=== PATIENT | male | born 1985 | race Caucasian/White ===

== ENCOUNTER 2017-05-29 19:44 | Emergency (ER) | payer BC ==
[~2017-05-29] VITALS: Ht 177.8 cm; Wt 99.8 kg
[~2017-05-29 19:44] MED LIST: CELEXA10 MG PO; CLONAZEPAM0.5 M1 PO; LEVAQUIN750 MG PO; MEDROL 4MG. DOSE4 MG PO; PHENERGAN DM SYRUP OR; PROVENTIL0.09 MG/A1 IH; TESSALON PERLE100 M1 PO; VENTOLIN H0.09 MG/AC IH; VOLTAREN75 MG PO
--- OUTSIDE RECORDS SUMMARY | 2017-05-29 19:50 | External Medical Summary Rpt ---
Author Author EL Lo, [employer] Organization [employer] Address Unknown Phone Unavailable
--- OUTSIDE RECORDS SUMMARY | 2017-05-29 19:50 | External Medical Summary Rpt | CCD ---
Author Author , EL GALLEGOS Address Unknown Phone [email or web address] Care Team Providers Care Inventory Auditor Name Role Phone uTyet Morales MD, Unavailable Unavailable Tuyet Morales MD [facility] Unavailable [place] [facility], [facility] P[facility]IA Purpose Continuity of Care Document - 05-05-2002 through 2016 Problems Code Diagnosis DOS Provider Status 466.0 466.0 ACUTE 11-09-2012 [place] BRONCHITIS [facility] 493.90 493.90 11-09-2012 [place] ASTHMA, [facility] 05-05-2002 [place] [facility] Allergies, Adverse Reactions, Alerts Type Drug Allergy Adverse Reaction to Substance Substance Reaction Severity Morphine I-HIVES Unknown Mupirocin I-RASH Unknown Medications Na ND Rx Da Fi Fi Am Da Di Ph RX Ph St me C No te ll ll ou ys ag ar # ys at rm s nt no ma ic us Or Da si cy ia de te s n re d IP 00 05 0 No RA 48 -0 T- 70 4- Lo AL 20 20 ng BU 10 13 er T 1 0. Ac 5- ti 3( ve 2. 5) MG /3 ML Sa 63 05 0 No li 80 -0 ne 70 4- Lo 10 20 ng Fl 07 13 er us 5 h Ac 10 ti ML ve Sy ri ng e FU 00 05 0 No RO 40 -0 SE 96 4- Lo NH 10 20 ng DE 20 13 er 4 40 Ac ti MG ve /4 ML AL Me 00 05 0 No th 00 -0 yl 90 4- Lo pr 19 20 ng ed 00 13 er ni 9 so Ac lo ti ne ve So d Fernandez cc in a Ae 08 05 0 No ro 37 -0 ch 30 4- Lo am 76 20 ng be 50 13 er r/ 0 Op Ac ti ti barrera ve le r Be 00 05 0 No nz 60 -0 on 32 4- Lo at 42 20 ng at 62 13 er e 1 10 Ac 0M ti G ve Ca ps ul e Vital Signs 11-09-2012 03:24 Name Value Interpretat Reference Comment ion Range Body 98.8 [degF] Temperature BP 88 mm[Hg] Diastolic BP Systolic 140 mm[Hg] Heart 72 /min Rate/Pulse O2% 97 % Respiratory 20 /min Rate 11-09-2012 02:19 Name Value Interpretat Reference Comment ion Range Body 98.8 [degF] Temperature BP 93 mm[Hg] Diastolic BP Systolic 138 mm[Hg] Heart 91 /min Rate/Pulse Respiratory 22 /min Rate 11-09-2012 01:44 Name Value Interpretat Reference Comment ion Range O2% 99 % Results Labs Lab Lab Date Result Refere Interp Status Commen Order Detail nces retati t Range on COMPREHENSIVE METABOLIC PANEL (11-09-2012 01:31) Glucose 100 74-106 complet 013 mg/dL ed Bld-mCn 01:31 c BUN 20 7-18 complet Bld-mCn 013 mg/dL ed c 01:31 Creat 1.5 0.8-1.3 complet SerPl-m 013 mg/dL ed Cnc 01:31 ESTIMAT 107 50-200 complet ED 013 ML/MIN ed CREATIN 01:31 INE CLEARAN CE GFR 11-09- 56 Greater complet (ESTIMA 013 ML/MIN than ed REYNA) 01:31 60 Sodium 11-09- 139 136-145 complet SerPl-s 013 mmoL/L ed Cnc 01:31 Potassi 11-09- 3.8 3.5-5.1 complet um 013 mmoL/L ed SerPl-s 01:31 Cnc Chlorid 11-09- 102 98-107 complet e 013 mmoL/L ed SerPl-s 01:31 Cnc CO2 11-09-2 30 21.0-32 complet SerPl-s 013 mmoL/L .0 ed Cnc 01:31 Calcium 9.2 8.5-10. complet 013 mg/dL 1 ed SerPl-m 01:31 Cnc Prot 11-09-2 7.7 6.4-8.2 complet SerPl-m 013 gm/dL ed Cnc 01:31 Albumin 05-04-2 4.3 3.4-5.0 complet 013 gm/dL ed SerPl-m 01:31 Cnc Globuli 05-04-2 3.4 1.3-3.2 complet n 013 gm/dL ed Ser-mCn 01:31 c Albumin 05-04-2 1.3 UNK 1.1-1.8 complet /Glob 013 ed SerPl-m 01:31 Rto Bilirub 05-04-2 0.4 0.2-1.0 complet 013 mg/dL ed SerPl-m 01:31 Cnc AST 05-04-2 31 U/L 15-37 complet SerPl-c 013 ed Cnc 01:31 ALT 05-04-2 69 U/L 30-65 complet SerPl-c 013 ed Cnc 01:31 ALP 05-04-2 96 U/L 50-136 complet SerPl-c 013 ed Cnc 01:31 CBC with AUTO DIFF (11-09-2012 01:31) WBC # 05-04-2 8.0 4.8-10. complet Bld 013 K/MM3 8 ed Auto 01:31 RBC # 05-04-2 5.28 4.6-6.2 complet Bld 013 M/mm3 ed Auto 01:31 Hgb 05-04-2 15.5 14.1-18 complet Bld-mCn 013 g/dL .0 ed c 01:31 Hct Fr 05-04-2 45.5 % 42.0-52 complet Bld 013 .0 ed 01:31 MCV RBC 05-04-2 86.2 fl 82.2-97 complet 013 .8 ed 01:31 MCH RBC 05-04-2 29.4 pg 27-31.2 complet Qn 013 ed Auto 01:31 MEAN 05-04-2 34.1 31.8-35 complet CORPUSC 013 g/dl .4 ed ULAR 01:31 HGB CONC RDW RBC 05-04-2 13.7 % 11.5-17 complet Auto 013 .5 ed 01:31 Platele 05-04-2 183 142-424 complet t Bld 013 K/mm3 ed Ql 01:31 Manual MEAN 05-04-2 8.8 fl 7.4-10. complet PLATELE 013 4 ed T 01:31 VOLUME Granulo 05-04-2 64.5 % 37.0-80 complet cytes 013 .0 ed Fr Bld 01:31 Auto LYMPH % 05-04-2 26.2 % 10-50 complet 013 ed 01:31 Monocyt 05-04-2 6.3 % 1.7-9.3 complet es Fr 013 ed Bld 01:31 Auto Eosinop 05-04-2 2.5 % 0.1-12. complet hil Fr 013 0 ed Bld 01:31 Auto Basophi 05-04-2 0.6 % 0.1-2.0 complet ls Fr 013 ed Bld 01:31 Auto Granulo 05-04-2 5.1 1.3-8.0 complet cytes # 013 K/mm3 ed Bld 01:31 Auto Lymphoc 05-04-2 2.1 0.7-4.5 complet ytes Fr 013 K/mm3 ed Bld 01:31 Auto Monocyt 05-04-2 0.5 0.1-1.0 complet es # 013 K/mm3 ed Bld 01:31 Auto Eosinop 05-04-2 0.2 0.0-0.4 complet hil # 013 K/mm3 ed Bld 01:31 Auto Basophi 05-04-2 0.1 0-0.2 complet ls # 013 K/MM3 ed Bld 01:31 Auto Encounters Encounter Start End Date Code Location Performer Type Date Emergency JAVI Morales MD (ER) 3 01:47 3 03:24 [facility]
--- OUTSIDE RECORDS SUMMARY | 2017-05-29 19:50 | External Medical Summary Rpt | CCD ---
Author Author , EL GALLEGOS Address Unknown Phone [email or web address] Support Name Relationship Address Phone SURINDER, Next Of Kin Unknown Unavailable JYOTI Immunization Name Date Rout CVX Reac Dose Comm Prov Is Faci e tion ent ider Refu lity Give sed n Infl 10-0 Intr 150 0.5 Hist FAMP No FAMP uenz 3-20 amus mL oric RASO RASO a 17 cula al FLMN FLMN Quad r Info Inj rmat ion - Sour ce Unsp ecif ied
--- OUTSIDE RECORDS SUMMARY | 2017-05-29 19:50 | External Medical Summary Rpt | CCD ---
Author Author , EL GALLEGOS Address Unknown Phone [email or web address] Care Team Providers Care Toll Line Inspector Name Role Phone Tuyet Morales MD, Unavailable Unavailable Tuyet Morales MD [facility] Unavailable [place] [facility], [facility] PEDIA Purpose Continuity of Care Document - 05-05-2002 through 2016 Problems Code Diagnosis DOS Provider Status 466.0 466.0 ACUTE 11-09-2012 [place] BRONCHITIS [facility] 493.90 493.90 11-09-2012 [place] ASTHMA, [facility] 4619 ACUTE 05-05-2002 [place] [facility] Allergies, Adverse Reactions, Alerts Type [...] RO 40 -0 SE 96 4- Lo HI 10 20 ng DE 20 13 er [...] Morales MD (ER) 3 01:47 3 03:24 [facility]
--- OUTSIDE RECORDS SUMMARY | 2017-05-29 19:50 | External Medical Summary Rpt | CCD ---
Author Author , EL GALLEGOS Address Unknown Phone [email or web address] Care Team Providers Care Sap Technical Architect Name Role Phone [facility], [facility] Purpose Continuity of Care Document - 05-05-2002 through 2016 Problems Code Diagnosis DOS Provider Status 4619 ACUTE 05-05-[facility] [place] [facility]
--- OUTSIDE RECORDS SUMMARY | 2017-05-29 19:50 | External Medical Summary Rpt | CCD ---
Author Author , EL GALLEGOS Address Unknown Phone [email or web address] Support Name Relationship Address Phone SURINDER, Next [...]
--- OUTSIDE RECORDS SUMMARY | 2017-05-29 19:50 | External Medical Summary Rpt | CCD ---
Author Author , EL GALLEGOS Address Unknown Phone [email or web address] Care Team Providers Care Rn Ortho Name Role Phone [facility], [facility] Purpose Continuity of Care Document - 05-05-2002 through 2016 Problems Code Diagnosis DOS Provider Status 4619 ACUTE 05-05-2002 [place] [facility]
[2017-05-29] MEDS ORDERED: CLINDAMYCIN HC300 MG PO (20:12)
--- NOTE | 2017-05-29 20:12 | Urgent Treatment Center Report ---
History of Present Issue Date/Time Seen by Provider 05/29/172005 Visit Reason Pt arrived:Walked Presenting Problem:PT STATES HE CUT HIS LEFT FOREARM ON METAL HIS CLEANED IT AND PUT DERMABOND ON IT BUT THE AREA IS SWOLLEN AND RED.NO HEAT. Location if Accident:Work Onset of symptoms date/time:/ or onset unknown for:MEDICAL HX UNKNOWN Have you (or family members/close friends) recently traveled outside the [place]? N If Yes, where/when: Have you had exposure to infectious disease within the past month? TB? Other? Specify: Patient state that he was carrying metal yesterday when a piece of metal caused laceration to left forearm State that his cleaned the wound and they had some dermabond from a first aid kit and she closed the wound State that this evening they noticed that the wound was red and there was redness all around the wound so she made him come and get checked because she was worried that it may be infected. State that it is red but not hot to touch ALLERGIES Coded Allergies: MDX - Morphine (MORPHINE) (I-RASH 01/22/13) MDX - Sulfamethoxazole (From BACTRIM) (I-RASH 01/22/13) MDX - Trimethoprim (From BACTRIM) (I-RASH 01/22/13) History Medical History General CAD? No Angina: Yes NE: No Hypertension? Yes Hyperlipidemia? Yes CHF? No DVT? No PE? No COPD? No Asthma? Yes Anemia? No GERD? No Gastric ulcers? No GI Bleed? No Hernia? No Thyroid Problems? No Hypothyroidism? No CVA? No Seizures? No Diabetes? No Renal Insuffiency? No UTI? No Stones? No BPH? No GB Disease: No Nephritic Syndrome? No Asplenia? No Hepatitis? No Sickle Cell Disease? No Arthritis? No Migraines? No Cataracts? No Glaucoma? No MRSA? No HIV? No TB? No Anxiety? No Depression? No Cancer? No More? No Immunization HX DT/Tetanus 01/14/2007 Flu THISFLUSEA Pneumonia NEVER Surgical Hx Previous Surgery?Y LT LEG X2 WISDOM TEETH Family History Family HX Diabetes No CAD Yes Hypertension Yes Hyperlipidemia No Cancer No TB No Social History Smoking Hx Smoker: Never Smoker Tobacco: No Alcohol Alcohol: No Review of Systems All Other Systems Reviewed and Negative Skin other (redness laceration) Physical Exam Vital Signs Vital Signs Date Time Temp Pulse Resp B/P Pulse O2 O2 Flow FiO2 Ox Delivery Rate 05/29 2001 98.9 81 18 133/78 97 General Appearance normal appearance, WD/WN, no apparent distress Ear, Nose, Throat hearing grossly normal, normal ENT inspection Respiratory Status Yes: trachea midline, chest symmetrical, non tender chest. No: respiratory distress. Cardiovascular normal exam, regular rate/rhythm, no peripheral edema Extremities approximately 4-5cm laceration on left forearm that was closed with dermabond prior to arrival, state that injury occurred yesterday morning while carrying metal and piece of metal cut his forearm. State that he continued to work the rest of the day, come home his cleaned the wound and closed it with dermabond. Tonight they noticed that it looked a little red around the wound, no drainage, no warmth redness only, area was marked and patient educated on what to watch for with worsening of redness Neurologic alert, normal exam, oriented x 3 Medical Decision Making LABS/Meds/Orders Pt receiving controlled substance in ED? No Results/Orders Current Medication Orders Sig/Alcon Start time Last Medication Dose Route Stop Time Status Admin Clindamycin HCl 300 MG ONCE ONE 05/29 2015 AC PO 05/29 2016 Clindamycin HCl 0 .STK-MED ONE 05/29 2010 DC PO Departure Departure Time of Disposition 2006 Disposition DC Home or Self Care(routine) Clinical Impression Primary Impression: Skin problem Condition STABLE Referrals Carmen MALDONADO,Thomas Mckinney (Family) Patient Instructions DI for Wound Infection Additional Instructions Watch area that we marked for worsening of redness around the wound If you see the redness around the wound is getting larger go straight to family doctor or ER Take medication as prescribed Over the counter Motrin or Tylenol as needed for pain REturn if needed Discharge Counseling Counseled pt/family regarding diagnosis, medications/RX, home care, follow up needs Prescriptions Current Visit Scripts Clindamycin Hcl (Clindamycin 300MG) 300 MG PO QID #40 CAP at 2019
[2017-05-29 20:16] VITALS: BP 133/78
== END 2017-05-29 20:17 | disposition home or self-care (01) ==
LOC: ER 19:44 → UTC 19:49
DX: S51.812A Laceration without foreign body of left forearm, initial encounter (principal); W45.8XXA Other foreign body or object entering through skin, initial encounter; Y92.019 Unspecified place in single-family (private) house as the place of occurrence of the external cause; Z88.2 Allergy status to sulfonamides; Z88.6 Allergy status to analgesic agent; I10 Essential (primary) hypertension; E78.5 Hyperlipidemia, unspecified; J45.909 Unspecified asthma, uncomplicated